=== PATIENT | female | born 1990 | race Caucasian/White ===

== ENCOUNTER 2020-08-03 19:01 | Emergency (ER) | payer MEDICAID ==
[~2020-08-03] VITALS: Ht 157.5 cm; Wt 110.0 kg
[~2020-08-03 19:01] MED LIST: ARIP10TA15 PO; CLON0.5T4 PO
[2020-08-03 19:34] LABS: URINE HCG NEGATIVE (NEG)
[2020-08-03 19:51] LABS: BASOPHILS # (AUTO) 0.1 X10'3 (0-0.2); BASOPHILS % (AUTO) 0.9 % (0-1); EOSINOPHILS # (AUTO) 0.3 X10'3 (0-0.9); EOSINOPHILS % (AUTO) 2.2 % (0-6); HEMATOCRIT 39.5 % (35.0-45.0); HEMOGLOBIN 13.4 g/dl (12.0-16.0); LYMPHOCYTES % (AUTO) 24.2 % (21-51); MEAN CORPUSCULAR HEMOGLOBIN 28.2 PG (27.0-31.0); MEAN CORPUSCULAR HGB CONC 33.9 g/dL (33.0-36.5); MEAN CORPUSCULAR VOLUME 83.3 FL (78-98); MEAN PLATELET VOLUME 8.6 FL (7.4-10.4); MONOCYTES # (AUTO) 1.1 X10'3 (0-0.9); NEUTROPHILS # (AUTO) 7.9 X10'3 (1.8-7.7); NEUTROPHILS % (AUTO) 63.7 % (42-75); PLATELET COUNT 300 X10'3 (140-440); RED BLOOD COUNT 4.74 X10'6 (4.20-5.60); RED CELL DISTRIBUTION WIDTH 13.9 % (11.5-14.5); WHITE BLOOD COUNT 12.4 X10'3 (4.5-11.0)
[2020-08-03 19:55] LABS: URINE AMPHETAMINE SCREEN NEGATIVE (Neg); URINE BARBITUATE SCREEN NEGATIVE (Neg); URINE BENZODIAZEPINES SCREEN NEGATIVE (Neg); URINE CANNABINOID SCREEN POSITIVE (Neg); URINE COCAINE SCREEN NEGATIVE (Neg); URINE METHADONE SCREEN NEGATIVE (Neg); URINE OPIATE SCREEN NEGATIVE (Neg); URINE PHENCYCLIDINE SCREEN NEGATIVE (Neg)
--- NOTE | 2020-08-03 19:56 | NUR ---
pt is yelling out and being rude to staff
[2020-08-03 20:12] LABS: ALANINE AMINOTRANSFERASE 43 U/L (12-78); ALBUMIN/GLOBULIN RATIO 1.1 (1.1-1.5); ALKALINE PHOSPHATASE 66 IU/L (46-116); ANION GAP 8 (8-16); ASPARTATE AMINO TRANSFERASE 27 U/L (10-37); BILIRUBIN,TOTAL 0.2 MG/DL (0.1-1.0); BLOOD UREA NITROGEN 17 MG/DL (7-18); CALCIUM 10.1 MG/DL (8.5-10.1); CHLORIDE 102 MMOL/L (99-107); CREATININE 0.74 MG/DL (0.40-0.90); ETHANOL < 0.010 GM/DL (0.0-0.010); GLUCOSE 104 MG/DL (70-104); POTASSIUM 3.3 MMOL/L (3.5-5.1); SODIUM 138 MMOL/L (135-145); TOTAL CARBON DIOXIDE 28.1 MMOL/L (24-32); TOTAL PROTEIN 7.8 G/DL (6.4-8.2); eGFR > 90 ML/MIN
[2020-08-03 20:13] LABS: ACETAMINOPHEN < 2.0 UG/ML (10-30)
[2020-08-03] MEDS ORDERED: LORazepam 2 mg/ml vial IM ONE (21:15)
[2020-08-03] MEDS ORDERED: diphenhydrAMINE 50 mg/ml inj IM ONE (21:15)
[2020-08-03] MEDS ORDERED: haloperidol lactate 5mg/ml inj IM ONE (21:15)
--- NOTE | 2020-08-03 21:26 | NUR ---
PATIENT IS YELLING OUT, SCREAMING ABOUT HER AND HER BOYFRIEND AND HER PAPERWORK, SECURITY ASSISTED MARIA DEL ROSARIO CHAHAL ADMINISTERING IM MEDICATIONS
--- NOTE | 2020-08-04 | NUR ---
Pt resting quietly, respirations normal, no s/s of distress.
--- NOTE | 2020-08-04 01:00 | NUR ---
Pt resting quietly, respirations normal, no s/s of distress.
--- NOTE | 2020-08-04 02:00 | NUR ---
Pt resting quietly, respirations normal, no s/s of distress.
--- NOTE | 2020-08-04 03:00 | NUR ---
Pt resting quietly, respirations normal, no s/s of distress.
--- NOTE | 2020-08-04 04:00 | NUR ---
Pt woke up yelling that she wants her paperwork, she wants to call her family, she wants to be taken home, and that she wants a turkey sandwich and some juice. Pt redirected.
--- NOTE | 2020-08-04 04:32 | NUR ---
Pt up to restroom.
[2020-08-04] MEDS ORDERED: diphenhydrAMINE 50 mg/ml inj IM ONE ×2 (04:45→06:35)
[2020-08-04] MEDS ORDERED: haloperidol lactate 5mg/ml inj IM ONE ×2 (04:45→06:35)
[2020-08-04] MEDS ORDERED: LORazepam 2 mg/ml vial IM ONE ×2 (04:45→06:35)
--- NOTE | 2020-08-04 06:34 | NUR ---
Patient was sleeping and next bed over was loud and patient is now awake. "Did I talk in my sleep last night because I usually talk in my sleep." Patient in dext bed says "No." Patient laying supine. No distress observed at this time. Continue to monitor.
[2020-08-04 07:17] LABS: CLARITY,URINE CLOUDY (Clear); COLOR,URINE AMBER (Yellow); GLUCOSE, URINE NEGATIVE (Neg); KETONES,URINE NEGATIVE (Neg); LEUKOCYTE ESTERASE ,URINE NEGATIVE (Neg); NITRITES, URINE NEGATIVE (Neg); OCCULT BLOOD,URINE LARGE (Neg); PROTEIN,URINE 30 mg/dl (Neg); UROBILINOGEN,URINE 0.2 E.U/dL (0.2-1.0)
[2020-08-04 07:22] LABS: UA COLLECTION TYPE VOIDED
[2020-08-04 07:23] LABS: BACTERIA,URINE FEW /HPF (Neg); MUCUS STRANDS NONE SEEN /LPF (Neg); RBC,URINE TNTC /HPF (0-2); SQUAMOUS EPITHELIAL CELL,UR MANY /LPF (FEW); WBC,URINE NONE SEEN /HPF (0-4)
--- NOTE | 2020-08-04 08:10 | NUR ---
Patient eating breakfast. No distress observed. Continue to monitor.
--- NOTE | 2020-08-04 09:40 | NUR ---
Patient's father at bedside. Father is very attentive to daughter. Patient agreed with RN at bedside with father to allow RN and [facility] to talk to parents on the phone or in person about patient's health history. Father states his daughter is the nicest person when she is on medication. Patient is a little agitated at times but not out of control. Continue to monitor.
[2020-08-04] MEDS ORDERED: ARIP10TA15 PO (10:16)
[2020-08-04] MEDS ORDERED: CLON0.5T5 PO (10:16)
--- NOTE | 2020-08-04 10:51 | NUR ---
Patient tells RN that she doesn't like Abilify because it makes her gain weight. RN advising patient to discuss her concerns with the doctor and so they can together come up with a plan. Patient's father stated to RN that this patient is the nicest person when she is on medication. Continue to monitor.
--- NOTE | 2020-08-04 11:26 | NUR ---
Patient's bed transferred to Bed 26. Patient is on the phone getting agitated and agitating the patient next to her. Patient questioned the move but was okay with moving. Continue to monitor.
--- NOTE | 2020-08-04 12:50 | NUR ---
Patient eating lunch. No distress observed. Continue to monitor.
--- NOTE | 2020-08-04 13:25 | NUR ---
Patient speaking to father on the phone and getting upset at him. Tech advised patient that if she continue to be upset on the phone she will need to get off. Patient calmed down and continued her conversation with her father. Continue to monitor.
--- NOTE | 2020-08-04 15:08 | NUR ---
Patient on the phone with her father and crying at times but is calm. Continue to monitor.
--- NOTE | 2020-08-04 16:20 | NUR ---
Patient writing a lot of notes. +Hypomanic. Continue to monitor.
[2020-08-04] MEDS: clonazePAM 0.5mg tablet PO PRN (17:31)
--- NOTE | 2020-08-04 17:50 | NUR ---
JAQUI, Nilda, evaluating patient. No distress observed. Continue to monitor.
[2020-08-04] MEDS: ARIPIPRAZOLE 10 MG TABLET PO SCH (20:24)
[2020-08-04] MEDS ORDERED: diphenhydrAMINE 25mg capsule PO ONE (23:05)
--- NOTE | 2020-08-05 00:33 | NUR ---
PATIENT IS YELLING AT STAFF. INFORMED PATIENT THAT IT IS GETTING LATE AND THAT WE NEED TO KEEP OUR VOICES DOWN. SECURITY WAS PRESENT FOR ANOTHER PATIENT AT THE SAME TIME. COLLECTIVELY WE WERE ABLE TO DE-ESCULATE THE SITUATIONS ON BOTH INCIDENTS.
[2020-08-05] MEDS ORDERED: nicotine 7mg patch - 24hr TD ONE (02:45)
[2020-08-05] MEDS: quetiapine 100mg tablet PO SCH (02:45)
--- NOTE | 2020-08-05 02:55 | NUR ---
PATIENT IS REFUSING SEROQUEL AT THIS TIME AND STATES SHE WILL NOT TAKE THE NICOTINE PATCH UNTIL THE MORNING . SHE WISHES TO SLEEP
--- NOTE | 2020-08-05 04:48 | NUR ---
PATIENT IS WALKING TO AND FROM BATHROOM SEVERAL TIMES. CURRENTLY STANDING IN FROM OF NURSING STATION. PATIENT CONTINUES TO ASK FOR HER CHART WELL WHY SHE IS HERE.
--- NOTE | 2020-08-05 05:02 | NUR ---
PATIENT IS REFUSING VITAL SIGNS AT THIS TIME AND STATING SHE WILL ONLY BE COOPERATIVE IF WE ALLOW HER TO TAKE A SHOWER. PATIENT IS YELLING OUT LOUD FOR ATIVAN AND NEW PANTS. ALSO REQUESTING A PHONE.
--- NOTE | 2020-08-05 05:05 | NUR ---
PATIENT IS CONTINOUSLY USING PROFANITY AND YELLING THAT SHE DOES NOT WANT TO REMAIN A PATIENT.
--- NOTE | 2020-08-05 05:14 | NUR ---
PATIENT IS BACK IN BED , YELLING PROFANITY , STATING SHE WANTS MORE MEDICATION IS REFUSING VITALS AND THAT SHE WILL NOT WEAR A GREEN SCRUB SHIRT.
--- NOTE | 2020-08-05 05:19 | NUR ---
PATIENT IS REFUSING TO WEAR A MASK WELL A SHIRT AT THIS TIME . STATES SHE IS CLOSTERPHOBIC AND IS NOT WRITING A "COMPLAINT " ABOUT HER CARE .
--- NOTE | 2020-08-05 06:43 | NUR ---
PT COMES UP TO NURSES STATION ASKING LOUDLY FOR TAMPONS AND PADS. PT GIVEN A XL TOP TO TRY ON. PT HAS REFUSED TO WEAR A SCRUB TOP BECAUSE THEY ARE TOO SMALL AND MAKE HER FEEL CLAUSTROPHOBIC.
--- NOTE | 2020-08-05 06:54 | NUR ---
PT IN THE BATHROOM CHANGING CLOTHES. PT GIVEN TAMPON AND PADS FOR HER PERIOD.
[2020-08-05] MEDS ORDERED: quetiapine 100mg tablet PO ONE (07:10)
--- NOTE | 2020-08-05 07:45 | NUR ---
PT HAS BEEN GIVEN AN XL ER GOWN AND HAS IT ON. PT ASKING FOR A SHOWER AND TOLD WE DONT HAVE SHOWERS IN THIS DEPT. PT ASKING FOR LARGER TAMPONS BUT GIVEN THE LARGEST ONE THAT WE HAVE. PT GIVEN BREAKFAST TRAY. PT REFUSES THE SEROQUEL THAT IS OFFERED TO HER. INFORM PT THAT SHE NEEDS TO STAY IN HER ROOM AND KEEP HER VOICE DOWN OR WE WILL NEED TO CALL SECURITY AND GIVE HER MEDICATION VIA INJECTION.
--- NOTE | 2020-08-05 08:06 | NUR ---
PT FINISHED WITH HER BREAKFAST. AT NURSES STATION ASKING FOR ANOTHER TAMPON.
--- NOTE | 2020-08-05 08:35 | NUR ---
While administering medication and discussing medication with patient, RN lets patient know that Seroquel has also been ordered for her. Patient states: "I have never taken that medication and I don't want it". Addendum: 08/06/20 at 0516 by SUKUMAR Time incorrect - should be 2035 on 08/05/20.
[2020-08-05] MEDS: clonazePAM 0.5mg tablet PO PRN ×2 (08:57→21:13)
--- NOTE | 2020-08-05 09:00 | NUR ---
PT REQUESTING HER CLONOPINE ONLY. PT INSISTING TO LOOK AT THE PACKAGE THE MEDICATION WAS IN. TURN LIGHT ON SO SHE CAN SEE. PT INSPECTS THE PACKAGE AND THEN TAKES THE MEDICATION. PT USING THE PHONE.
[2020-08-05] MEDS ORDERED: ibuprofen tablet 400 MG TABLET PO PRN (09:20)
--- NOTE | 2020-08-05 09:20 | NUR ---
PT ON THE PHONE CRYING TO HER FAMILY ABOUT WANTING TO COME HOME.
--- NOTE | 2020-08-05 12:00 | NUR ---
Clinician from [facility] in to eval pt. Pt will be held on a [employer]0.
--- NOTE | 2020-08-05 12:35 | NUR ---
PT DEMANDING TAMPONS AND PADS AT NURSES STATION. I DID NOT SEE PT GO INTO THE BATHROOM SO I CHECKED AND OPENED THE DOOR. PT STATES "EXCUSE ME, I DON'T EVEN KNOW YOU, DONT PEEK AT ME IN THE FUCKING BATHROOM".
--- NOTE | 2020-08-05 12:39 | NUR ---
PT IS AGGITATED AND ANGRY ABOUT EVERYTHING. PT GIVEN TAMPONS PADS AND CLEAN UNDERWEAR. PT STILL COMPLAINING ABOUT TAKING MEDICATIONS.
--- NOTE | 2020-08-05 13:34 | NUR ---
PT ASKING TO USE THE PHONE AGAIN. PT IS DENIED BECAUSE SHE GETS AGITATED WHEN TALKING TO FAMILY AND ASKING THEM TO COME AND TAKE HER HOME. PT IS UPSET AND STARTS TO YELL BUT GOES BACK TO HER ROOM. NOW ASKING FOR HER NICOTINE PATCH EVEN THOUGH SHE HAD REFUSED IT EARLIER. PT STATING "I HAVE DONE NOTHING WRONG. IM JUST TRYING TO LIVE MY LIFE. THATS ALLS"
--- NOTE | 2020-08-05 13:37 | NUR ---
PT STATES SHE WILL WALK HOME BECAUSE SHE WANTS TO TAKE A SHOWER AND SHE KNOWS HOW TO GET TO HER HOME.
[2020-08-05] MEDS ORDERED: haloperidol lactate 5mg/ml inj IM ONE (13:50)
[2020-08-05] MEDS ORDERED: LORazepam 2 mg/ml vial IM ONE (13:50)
[2020-08-05] MEDS ORDERED: diphenhydrAMINE 50 mg/ml inj IM ONE (13:50)
--- NOTE | 2020-08-05 14:35 | NUR ---
PT TOLD THAT THAT SHE CANT USE THE PHONE DUE TO HER BEHAVIOR. PT YELLING OVER THE PHONE AT HER FAMILY INSISTING THAT THEY COME AND TAKE HER HOME. PT WAS UPSET AND AGITATED, ARGUMENTIVE AND UNREASONABLE. TALKING LOUDLY AND SWEARING. PT HAS BEEN DOING THIS OFF AND ON ALL DAY. NOW GETTING WORSE. ADMIN MEDICATION ORDERED TO CALM PT DOWN.PT IS TOLD THAT SHE IS ON A HOLD AND WONT BE LEAVING SO SHE NEEDED TO STOP ASKING HER FAMILY.
--- NOTE | 2020-08-05 16:00 | NUR ---
[facility] CALLS FOR REPORT. WILL GIVE REPORT TO THEIR DOCTOR AND CALL THE [facility] OFFICE.
--- NOTE | 2020-08-05 17:00 | NUR ---
PT SLEEPING, NO S/S AGITATION.
--- NOTE | 2020-08-05 19:45 | NUR ---
Patient's mom called to check on patient. Patient sleeping and okay with mom not to wake her. Mom reports it is very important to get patient back on Abilify and that the patient will "pretend to take the pill but not really swallow it".
--- NOTE | 2020-08-05 20:30 | NUR ---
Awoke patient to administer Abilify. Patient is slow to rouse and light is turned on. Patient becomes agitated about taking Abilify and states she wants to get of the medication because it is "affecting her fertility" and that she "only came here for a test". Patient inquires as to why she is here and RN explains that she has been placed on a 5150 hold and will be going to [facility] in the morning. Patient is encouraged to take the Abilify but still refusing saying she "has an appointment already on Thursday with her psychiatrist" and does not want to go to [facility]. Patient requesting Benadryl and Ativan. RN explains that patient has Abilify ordered. Patient agrees to take Abilify and requests Klonopin; both meds administered.
[2020-08-05] MEDS: ARIPIPRAZOLE 10 MG TABLET PO SCH (21:08)
[2020-08-06] MEDS: quetiapine 100mg tablet PO SCH (02:45)
--- NOTE | 2020-08-06 05:43 | NUR ---
Enoc from [facility] called and is updated on patient situation/status. Enoc is reviewing the packet and will call back this morning. He recommends long acting Abilify injection as solution to patient not wanting to take her medication; from the chart it appears this method has been used in the past for patient.
--- NOTE | 2020-08-06 06:36 | NUR ---
Received report. Pt awake and talking about issues and wanting to not be on a hold at nurses station. Irritable with pressured speech. Redirectable.
[2020-08-06] MEDS: clonazePAM 0.5mg tablet PO PRN ×2 (09:12→20:11)
--- NOTE | 2020-08-06 09:30 | NUR ---
Pt awake and ate breakfast. She is irritated at being on a hold again and does not want to go in-pt again. Pt received Klonopin 0.5 mg @ 0912 and responded well.
--- NOTE | 2020-08-06 12:54 | NUR ---
Pt awake and talking to staff. Is labile yet redirectable. Washed her hair in sink and made phone calls.
--- NOTE | 2020-08-06 15:00 | NUR ---
Pt awaeting phone call from therapist and visit from father. Talkative. Resistive to conversations about taking MH meds.
--- NOTE | 2020-08-06 17:39 | NUR ---
Pt in bed resting and doing some writing. She had telephone meeting with therapist from [facility] and visited with her father. Pt continues to blame BF's brother for getting her "5150'd" and does not want to take the meds she has been on.
--- NOTE | 2020-08-06 18:30 | NUR ---
Assumed care of patint that is finshing dinner mean. No s/s of distress.
--- NOTE | 2020-08-06 19:53 | NUR ---
Patient up to restroom. Denies needs.
--- NOTE | 2020-08-06 20:21 | NUR ---
Patient requesting toothbrushes and floss, because she will only use them once.
[2020-08-06] MEDS: ARIPIPRAZOLE 10 MG TABLET PO SCH (21:00)
--- NOTE | 2020-08-06 21:41 | NUR ---
Patint is escalating, and making accusations that "you're not attending to my needs. I want a shower, a stack of washcloths, you're refusing me a shower". She has written down her demands, and is demanding copies be made. She has also refused Abilify stating that her "other" doctor said she did not need it.
--- NOTE | 2020-08-06 23:50 | NUR ---
Every time the patient hears anybody talking, she thinks it's about her. Now saying if anybody tries to send her to another facility there will be trouble. She says that she'll be hiring a head screen worker and suing us all.
--- NOTE | 2020-08-07 01:54 | NUR ---
Patient finally appears to be sleeping. No s/s of distress.
--- NOTE | 2020-08-07 03:23 | NUR ---
Patient asleep in supine position. Resp. even and unlabored.
[2020-08-07] MEDS: quetiapine 100mg tablet PO SCH (03:30)
--- NOTE | 2020-08-07 04:18 | NUR ---
Pt woke up extremely agitated requested water and Ativan. Pt was re-informed that Ativan was not available. Pt was updated on plan of care. Pt also observed to be paranoid that her mother or family member is forcing her to stay here and made alluding threats if she is not released today. Pt soon after went back to bed and is currently resting in bed.
--- NOTE | 2020-08-07 05:08 | NUR ---
Pt approached nursing station requesting breakfast arrival time. When nurse responded around [id number]. Pt responded, "I'm pretty sure it was 0600 yesterday." Pt then observed to be cleaning bedside table. Pt currently resting in bed.
--- NOTE | 2020-08-07 06:08 | NUR ---
VS have been assessed and patient is currently in bed sleeping with observed chest rise and fall.
--- NOTE | 2020-08-07 07:06 | NUR ---
Pt has been up to nurses station several times making demands to be released and states she would be better off at home. Pt redirected to room and requested to keep her voice down as other pts are still sleeping.
--- NOTE | 2020-08-07 07:10 | NUR ---
Pt shown where books are and is picking a book to read.
--- NOTE | 2020-08-07 07:15 | NUR ---
Pt reminded breakfast trays show up after 8am as pt at nurses station stating "it's 7:15, where's our breakfast".
--- NOTE | 2020-08-07 08:10 | NUR ---
Pt up at bedside eating breakfast tray.
[2020-08-07] MEDS: nicotine 7mg patch - 24hr TD SCH (08:31)
[2020-08-07] MEDS: clonazePAM 0.5mg tablet PO PRN ×2 (08:41→18:35)
--- NOTE | 2020-08-07 09:45 | NUR ---
Pt given phone per request to make phone calls.
--- NOTE | 2020-08-07 12:30 | NUR ---
Pt at nurses station politely articulating needs. Pt requesting if she can be started on Abilify shot and requesting to get it here. Spoke with Kristine Goodwin from [facility] and needing to verify when pt last received shot.
--- NOTE | 2020-08-07 13:15 | NUR ---
Pt states last dose of Abilify shot was 8 months ago. Will need to verify pt F/U plan as med is long acting.
--- NOTE | 2020-08-07 14:03 | NUR ---
Pt is lying on her back in bed, appears to be sleeping.
--- NOTE | 2020-08-07 15:36 | NUR ---
Parker CULVER from [facility] called to inquire about the pt.
--- NOTE | 2020-08-07 16:31 | NUR ---
Pt is talking on the phone.
--- NOTE | 2020-08-07 17:27 | NUR ---
Pt is awake and pacing back and forth in front of the nurses' station. Pt states that she finally got ahold of her boyfriend.
--- NOTE | 2020-08-07 17:42 | NUR ---
Pt is requesting an Abilify 400 mg IM injection. She is agreeable to continuing with monthly injections and restablishing services with the [facility].
[2020-08-07] MEDS: NICOTINE POLACRILEX 2 MG LOZENGE BC PRN (20:17)
[2020-08-07] MEDS: ARIPIPRAZOLE 10 MG TABLET PO SCH (20:17)
--- NOTE | 2020-08-07 20:21 | NUR ---
pt has been sitting in her bed quietly working on a [employer]. She states she hasnt had any control of her meds because her family has all of her meds so she is eager to start a PATRICK of abilify. Pt requested another nicotine patch stating her patch fell off earlier in the day. Pt was given nicotine lozenge and prn klonapin and told her next patch is scheduled for tommorow. Pt is med compliant with evening meds. Spent early evening talking with family over the phone.
--- NOTE | 2020-08-07 22:04 | NUR ---
pt is awake, in a pleasant mood. Pt is sitting on her bed drawing and occasionally approaches the nurses station to show us her drawings and returns to bed.
--- NOTE | 2020-08-08 00:57 | NUR ---
pt came to nurses station and asked about the law in [place] regarding when an unborn baby is viable and asked if we could find someone in the hospital that would have this information. Pt states she was having a nightmare when she was woken up. Explained to patient we dont have any one available at this hour to discuss [place] Law with her. Pt returned to her bed.
--- NOTE | 2020-08-08 01:16 | NUR ---
pt returned to nurses station and requested an ice pack for pain in her "neck, back, head, all over because of these uncomfortable beds!" Asked patient if she would like some medication and she declined it and was given an ice pack and proceeded to inform the tech she got the ice pack from the wrong room. A few minutes later she returned to the nurses station asking if the tech would order her a pizza and she was told no. She then returned asking if her PATRICK of cydney had been ordered for tommorow. Explained it has not been ordered as of yet. She then returned and asked for a nicotine lozenge then returned to bed
[2020-08-08] MEDS: NICOTINE POLACRILEX 2 MG LOZENGE BC PRN ×5 (02:04→19:09)
[2020-08-08] MEDS: quetiapine 100mg tablet PO SCH (02:45)
--- NOTE | 2020-08-08 04:29 | NUR ---
pt is sleeping rr even and unlabored.
--- NOTE | 2020-08-08 06:42 | NUR ---
Patient awake and demanding. Patient with light on and RN and staff asking her to be quiet as all other patients are still sleeping. Continue to monitor.
[2020-08-08] MEDS: nicotine 7mg patch - 24hr TD SCH (08:00)
--- NOTE | 2020-08-08 08:20 | NUR ---
Patient up to the nurses station multiple, multiple times for different things. Patient appears to be hypomanic. Patient to be re-evaluated today by [facility]. Continue to monitor.
[2020-08-08] MEDS: clonazePAM 0.5mg tablet PO PRN ×2 (08:24→19:09)
--- NOTE | 2020-08-08 10:11 | NUR ---
Patient constantly up at the nurses station asking for different things. Continue to monitor.
--- NOTE | 2020-08-08 12:55 | NUR ---
Patient's 5150 was renewed again. Patient was upset. Patient is supposed to have KELLY Lorenzo evaluate patient for the Invega Sustaina 400 mg long acting injection and place patient on a mood stabilizer. Continue to monitor.
--- NOTE | 2020-08-08 16:03 | NUR ---
KELLY Lorenzo (psychiatric [facility]) evaluating patient. Continue to monitor.
[2020-08-08] MEDS ORDERED: aripiprazole 400mg suspension ER syringe IM ONE (16:15)
--- NOTE | 2020-08-08 17:15 | NUR ---
Patient received Abilify Maintaina 400 mg I.M.
--- NOTE | 2020-08-08 18:40 | NUR ---
Pt stating she is allowed to go home to take a shower and she is not supposed to be here. Stated pt a few beds down is triggering her anxiety by constant growling. Md over to see another pt, received order for IM (pt refusing to take po). Pt refusing to go back to bed area. Security called and med administered.
[2020-08-08] MEDS ORDERED: haloperidol lactate 5mg/ml inj IM ONE (18:50)
--- NOTE | 2020-08-08 18:50 | NUR ---
Pt given phone to call her father.
--- NOTE | 2020-08-08 19:00 | NUR ---
Pt given PRN nicotine lozenge and klonopin for "anxiety" per pt's request.
--- NOTE | 2020-08-08 19:14 | NUR ---
Pt given phone to call her boyfriend.
--- NOTE | 2020-08-08 19:53 | NUR ---
Pt ripping pages from magazine and throwing items in garbage and on the floor around her bed. Pt turns light on despite requests to leave light off to not disturb neighbor.
--- NOTE | 2020-08-08 19:55 | NUR ---
Pt given turkey sandwich.
[2020-08-08] MEDS: ARIPIPRAZOLE 10 MG TABLET PO SCH (21:00)
--- NOTE | 2020-08-08 22:52 | NUR ---
Pt resting quietly, respirations normal, no s/s of distress.
--- NOTE | 2020-08-09 | NUR ---
Pt resting quietly, respirations normal, no s/s of distress.
--- NOTE | 2020-08-09 01:00 | NUR ---
Pt given turkey sandwich.
--- NOTE | 2020-08-09 02:00 | NUR ---
Pt resting quietly, respirations normal, no s/s of distress.
[2020-08-09] MEDS: quetiapine 100mg tablet PO SCH (02:45)
--- NOTE | 2020-08-09 03:05 | NUR ---
Pt resting quietly, respirations normal, no s/s of distress.
--- NOTE | 2020-08-09 04:43 | NUR ---
Pt resting quietly, respirations normal, no s/s of distress.
[2020-08-09] MEDS: NICOTINE POLACRILEX 2 MG LOZENGE BC PRN ×5 (06:49→23:35)
[2020-08-09] MEDS: nicotine 7mg patch - 24hr TD SCH (07:30)
[2020-08-09] MEDS: clonazePAM 0.5mg tablet PO PRN ×2 (07:50→19:08)
--- NOTE | 2020-08-09 15:45 | NUR ---
Pt requesting nicotine losenge
--- NOTE | 2020-08-09 18:30 | NUR ---
Patient approaches nurses station. She is demanding, states she wants a sandwich, not now, but later. Patient then demands to see the [facility] Clinician, "Melvin." This commercial real estate underwriter advised the patient that Melvin would be advised when he comes in to do his evening evaluations.
--- NOTE | 2020-08-09 18:50 | NUR ---
TIRSO Charles from [facility] spoke with patient at bedside. Patient became labile, she began ranting. TIRSO Charles explained the 5150 renewal to the patient. She remains angry and demanding, patient placed a phone call to her mother at home. Patient projects her problems onto her mother while talking on the telephone.
--- NOTE | 2020-08-09 19:43 | NUR ---
Patient allowed to use telephone. Patient carried on a normal conversation with her friend.
[2020-08-09] MEDS: ARIPIPRAZOLE 10 MG TABLET PO SCH (20:35)
--- NOTE | 2020-08-09 20:46 | NUR ---
Patient is compliant with medications. She remains mildly intrusive with staff. Patient is redirected and complies.
--- NOTE | 2020-08-09 22:15 | NUR ---
Patient was given a Benadryl to help her sleep.
[2020-08-09] MEDS ORDERED: diphenhydrAMINE 25mg capsule PO ONE (23:00)
--- NOTE | 2020-08-09 23:36 | NUR ---
Patient requested and was given a nicotine lozenge.
[2020-08-10] MEDS ORDERED: quetiapine 100mg tablet PO ONE ×2 (02:45→04:40)
--- NOTE | 2020-08-10 03:20 | NUR ---
Patient complains of anxiety and can't sleep. Seroquel 50 mg will be given per Dr. Alanis. Patiet behavior has been resistant to sleep.
--- NOTE | 2020-08-10 05:08 | NUR ---
Patient is up to the bathroom to void. She is ambulatory without problem.
[2020-08-10] MEDS: nicotine 7mg patch - 24hr TD SCH (08:22)
--- NOTE | 2020-08-10 08:41 | NUR ---
Patient is awake and asking for shower supplies. Patient given towels, soap, and change of clothing.
--- NOTE | 2020-08-10 09:10 | NUR ---
Patient given phone to call friend and mother.
--- NOTE | 2020-08-10 09:30 | NUR ---
rcvd report, pt is on the phone, calm, no needs at this time
--- NOTE | 2020-08-10 09:55 | NUR ---
pt req nicotine losenge, will obtain
[2020-08-10] MEDS: NICOTINE POLACRILEX 2 MG LOZENGE BC PRN ×4 (09:59→20:33)
--- NOTE | 2020-08-10 10:30 | NUR ---
pt is up at nurses station reading her poetry
[2020-08-10] MEDS: clonazePAM 0.5mg tablet PO PRN ×2 (11:13→20:34)
--- NOTE | 2020-08-10 11:31 | NUR ---
pt given klonopopin as req, now on the phone, no other needs at this time
--- NOTE | 2020-08-10 12:30 | NUR ---
pt resting in bed, no needs at this time
--- NOTE | 2020-08-10 13:30 | NUR ---
pt sitting on her bed, calm, no needs at this time
--- NOTE | 2020-08-10 14:30 | NUR ---
pt supine in bed, awake, no needs at this time
--- NOTE | 2020-08-10 16:06 | NUR ---
pt sitting up at bs eating jello no needs at this time
--- NOTE | 2020-08-10 16:30 | NUR ---
pt up at desk again, calm
--- NOTE | 2020-08-10 17:45 | NUR ---
pt is up to the bathroom, no needs at this time
--- NOTE | 2020-08-10 18:30 | NUR ---
pt talking with her dad, calm, no needs at this time
--- NOTE | 2020-08-10 19:54 | NUR ---
pt is sitting up in a chair, on the phone, she is made aware that phone is off in 5 mins
--- NOTE | 2020-08-10 20:00 | NUR ---
Pt is sitting in the bed talking over the phone.
[2020-08-10] MEDS: ARIPIPRAZOLE 10 MG TABLET PO SCH ×2 (20:35→20:38)
--- NOTE | 2020-08-10 21:30 | NUR ---
pt is walking around the unit, reading book.
--- NOTE | 2020-08-10 22:30 | NUR ---
pt resting in bed comfortably
--- NOTE | 2020-08-10 23:30 | NUR ---
pt resting in bed comfortably
--- NOTE | 2020-08-11 00:30 | NUR ---
pt resting in bed comfortably
--- NOTE | 2020-08-11 01:22 | NUR ---
pt resting in bed comfortably
--- NOTE | 2020-08-11 02:30 | NUR ---
pt resting in bed comfortably
--- NOTE | 2020-08-11 03:30 | NUR ---
pt resting in bed comfortably
--- NOTE | 2020-08-11 04:30 | NUR ---
pt is awake and sitting in her bed
[2020-08-11] MEDS: NICOTINE POLACRILEX 2 MG LOZENGE BC PRN ×4 (04:55→21:24)
--- NOTE | 2020-08-11 05:50 | NUR ---
pt is awake. vey intrusive. needs frequent redirection.
--- NOTE | 2020-08-11 06:30 | NUR ---
Patient is ampulatory, she exhibits needy behavior, she is fairly well oriented, tangential at times, mildly intrusive.
[2020-08-11] MEDS: nicotine 7mg patch - 24hr TD SCH (08:00)
--- NOTE | 2020-08-11 08:39 | NUR ---
Patient is intrusive and exhibits rude behavior. She remains needy.
--- NOTE | 2020-08-11 09:36 | NUR ---
Paulino goncalvessaritha in [facility] - 08/11/20 at 1827 by TAMY [facility] office called to remind us that this patient has been released from all mental health holds.
[2020-08-11] MEDS: clonazePAM 0.5mg tablet PO PRN ×3 (10:08→20:13)
--- NOTE | 2020-08-11 11:43 | NUR ---
Pt has been on phone for ~ 20 minutes. She was informed another pt was awaiting phone use. Pt initiated an additional call rather than give phone up as requested. Limit setting has been instituted. Pt was explained she would not be given the phone for another hour. Pt verbalized understanding of the limit, without a negative response.
--- NOTE | 2020-08-11 12:48 | NUR ---
Patient is angry at [facility] clinician.
[2020-08-11] MEDS ORDERED: LORazepam 1 MG tablet PO ONE (13:30)
--- NOTE | 2020-08-11 14:03 | NUR ---
Patient remains having verbal outbursts, she yells at staff. PO Ativan 1 mg given along with a nicotine lozenge. Patient exhibits understanding, she is quite labile today.
--- NOTE | 2020-08-11 14:43 | NUR ---
Pt's parents at bedside.
--- NOTE | 2020-08-11 15:10 | NUR ---
Pt parents here to see pt for her birthday. All belongings brought with them are held at security.
--- NOTE | 2020-08-11 17:06 | NUR ---
Parents left without incident. Pt at nursing station every few minutes asking for something.
--- NOTE | 2020-08-11 17:36 | NUR ---
Pt asks staff to look at bilateral breast "bumps".1 Small red bump noted on each lateral breast. No streaks or drainage.
[2020-08-11] MEDS: ARIPIPRAZOLE 10 MG TABLET PO SCH (20:13)
--- NOTE | 2020-08-11 22:01 | NUR ---
Pt has been cooperative and pleasant all shift. Mutiple requests for various items. Pt is hoping to go home tomorrow pt said her family is willing for her to go home. Pt is sleeping at this time.
[2020-08-12] MEDS ORDERED: diphenhydrAMINE 25mg capsule PO ONE (03:00)
--- NOTE | 2020-08-12 05:56 | NUR ---
Pt awake between 2400 and 0400. Stood at nurses station most of that time. Mutiple c/o and request. At times becoming demanding and verbally aggressive with staff. Order for Benadryl obtained and given. Pt sleeping at this time.
--- NOTE | 2020-08-12 07:00 | NUR ---
Pt up looking at the clock. 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
--- NOTE | 2020-08-12 08:00 | NUR ---
Pt up walking around waiting for breakfast. She is calm and cooperative and following directions well.
--- NOTE | 2020-08-12 08:53 | NUR ---
Pt is up coloring. She is calm and cooperative. Staff set her up for a bed bath. Mental Health will reassess her for discharge in the morning.
[2020-08-12] MEDS: clonazePAM 0.5mg tablet PO PRN ×2 (08:56→21:39)
[2020-08-12] MEDS: nicotine 14mg patch - 24hr TD SCH (08:56)
[2020-08-12] MEDS: NICOTINE POLACRILEX 2 MG LOZENGE BC PRN ×4 (09:05→19:22)
--- NOTE | 2020-08-12 09:08 | NUR ---
breaking primary, RN, pt is up at nurses station, req a nicotine losenge, it was given, no other needs at this time
--- NOTE | 2020-08-12 09:30 | NUR ---
Pt continues to entertain herself and talk about leaving here tomorrow. Pt has received her PATRICK and is compliant with taking oral pills.
--- NOTE | 2020-08-12 10:40 | NUR ---
Pt is on the phone with family. She is calm and cooperative.
--- NOTE | 2020-08-12 11:25 | NUR ---
Pt continues to cooperative. She had a bed bath.
--- NOTE | 2020-08-12 13:11 | NUR ---
Patient talking on the phone with her mom giving every detail of the lunch she just ate. Gravy, lemon packet, cake. Patient appears to still be hypomanic. Continue to monitor.
--- NOTE | 2020-08-12 14:09 | NUR ---
Patient happy and chatting on the phone. Continue to monitor.
--- NOTE | 2020-08-12 16:15 | NUR ---
Patient chatting on phone and again giving every detail of her lunch to the person on the phone. Patient still having hypomania. Patient is pleasant. Continue to monitor.
--- NOTE | 2020-08-12 19:32 | NUR ---
patient is sitting in a chair at her bedside, her physical assessment has been done and documented.
[2020-08-12] MEDS: ARIPIPRAZOLE 10 MG TABLET PO SCH (21:39)
--- NOTE | 2020-08-12 22:10 | NUR ---
patient is standing at the nurses station chatting with the nurses.
--- NOTE | 2020-08-13 00:33 | NUR ---
patient is sleeping, she is not in any distress.
--- NOTE | 2020-08-13 02:06 | NUR ---
patient is sleeping, she is breathing easily.
--- NOTE | 2020-08-13 04:06 | NUR ---
patient is sitting up in bed, drawing with some crayon.
[2020-08-13] MEDS: NICOTINE POLACRILEX 2 MG LOZENGE BC PRN ×4 (04:55→18:50)
--- NOTE | 2020-08-13 07:02 | NUR ---
Received in report that pt is on her period and she requested to shower. When shower was offered pt refused and stated "I like the sponge bath." "I will shower at my home tomorrow after lunch."
[2020-08-13] MEDS: nicotine 14mg patch - 24hr TD SCH (08:05)
--- NOTE | 2020-08-13 08:30 | NUR ---
Pt sitting on side of bed finishing her breakfast. Pt's only scheduled medication was her 14mg Nicotine patch. Pt is talkative and makes grandiose statements. Talked about "all the sports she used to play" and how she was good at all of them. Pt denies S/I and H/I, A/VH. Pt has a box of "art" and wanted to show director underwriter sales all she had done. Pt believes she is going home today "I am doing everything I am supposed too." "I am taking my meds, eating and even washing myself." "There is no reason I wouldn't be able to leave, I am not under [facility] care." Pt is calm and cooperative.
[2020-08-13] MEDS: clonazePAM 0.5mg tablet PO PRN ×2 (08:48→22:04)
--- NOTE | 2020-08-13 10:44 | NUR ---
Pt at nurses station using counter space to draw. Pt is talkative and needs to be asked to take a break while RN charts. Pt continues to talk, remains calm and cooperative. Pt had several phones calls talking to her father and her sister.
--- NOTE | 2020-08-13 11:48 | NUR ---
patient ambulated wnl up to nurses station and requested a nicotine lozenge. primary rn to give
--- NOTE | 2020-08-13 12:58 | NUR ---
Pt up in her bed talking on phone. Pt is calm. Ate 100% of her lunch.
--- NOTE | 2020-08-13 14:38 | NUR ---
Pt up a nurses desk drawing. Pt consistently talks wether it is to staff or herself. Pt states "I just want to go home." "I am bored."
--- NOTE | 2020-08-13 16:18 | NUR ---
Administered Nicotine lozenge.
--- NOTE | 2020-08-13 16:33 | NUR ---
Pt sitting on bed talking on phone. 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
[2020-08-13 16:59] VITALS: BP 139/90
--- NOTE | 2020-08-13 19:58 | NUR ---
Received patient in her room drawing pictures. Denies needs.
--- NOTE | 2020-08-13 20:45 | NUR ---
The patient comes to nurses station. She demanded 5 towels, 5 washcloths, new socks, new panties, and a feminine pad. She was given 3 towels and 3 washcloths along with other things.
[2020-08-13] MEDS: ARIPIPRAZOLE 10 MG TABLET PO SCH (21:00)
--- NOTE | 2020-08-13 21:05 | NUR ---
Pt in bathroom taking sponge bath.
--- NOTE | 2020-08-13 23:00 | NUR ---
Patient soundly sleeping. Resp equal and unlabored.
--- NOTE | 2020-08-14 01:15 | NUR ---
Patient asleep in supine position. No s/s of distress.
--- NOTE | 2020-08-14 03:31 | NUR ---
patient lying on left side in bed covers on eyes closed rr even un labored no observables/s of acute stress at this time will continue to monitor while breaking primary RN
--- NOTE | 2020-08-14 03:53 | NUR ---
Patient lying in bed with eyes closed. Occasionally yells about something.
--- NOTE | 2020-08-14 04:46 | NUR ---
Patient awake asking for water and being intrusive at nurses station.
--- NOTE | 2020-08-14 04:55 | NUR ---
Patient back to nurses station, "since I don't know when I'm getting out of here, and I'm too dumb to do anything about it, I demand some sort of B-complex added to my meals."
--- NOTE | 2020-08-14 05:10 | NUR ---
Patient again at nurses station making demands and will not go back to her room. "I get up at this time at home all the time, so you people are supposed to accomodate me."
--- NOTE | 2020-08-14 06:00 | NUR ---
Patient pacing around aimlessly. Will not stay in room.
--- NOTE | 2020-08-14 06:40 | NUR ---
Patient is up and agitated. Patient being loud and attempting to awaken the other patients. Patient states she is going to report the RN for taking away her basin that she whe was filling in the outside sink. The sink is high power and making loud noise. RN asked patient to please be quiet and wait until people are awake before she talks loudly and makes noise. This set patient off. Continue to monitor.
--- NOTE | 2020-08-14 08:35 | NUR ---
Patient eating breakfast. No distress observed. Continue to monitor.
[2020-08-14] MEDS: nicotine 14mg patch - 24hr TD SCH (08:52)
[2020-08-14] MEDS: clonazePAM 0.5mg tablet PO PRN (09:25)
--- NOTE | 2020-08-14 09:32 | NUR ---
PATIENT UP AND ATTEMPTING TO EXCERSIZE WHILE LIFTING HER SHIRT UP. PATIENT WAS ASKED TO GO TO HER ROOM. SHE REFUSED IN A RAISED VOICE AND THEN WENT TO HER ROOM. PATIENT THEN ASKED TO USE THE PHONE. WHEN ASKED WHO SHE WAS GOING TO CALL, SHE SAID THAT SHE WOULD BE CALLING [facility] TO SEE IF THEY WOULD TAKE HER. I EXPLAINED TO HER THAT WE CAN NOT ALLOW HER TO CALL FACILITIES AND THAT CALLING FACILITIES FOR PLACEMENT IS OUR JOB NOT HERS. SHE AGREED
--- NOTE | 2020-08-14 10:00 | NUR ---
Patient bathing in the BR. No distress observed.
[2020-08-14] MEDS: NICOTINE POLACRILEX 2 MG LOZENGE BC PRN (10:42)
--- NOTE | 2020-08-14 11:08 | NUR ---
[facility], evaluating patient. Continue to monitor.
--- NOTE | 2020-08-14 12:30 | NUR ---
[facility] Patient is going to the mission. Continue to monitor.
--- NOTE | 2020-08-14 14:38 | NUR ---
RN called a cab for patient. 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 Patient given d/c instrucions. Patient awaiting Taxi. Patient calm and denies suicidal ideation.
== END 2020-08-14 14:57 | disposition home or self-care (01) ==
LOC: EEVIPCON 19:01 → ER 19:01
DX: F23 Brief psychotic disorder (principal); Z20.822 Contact with and (suspected) exposure to COVID-19; R11.0 Nausea; F31.9 Bipolar disorder, unspecified; F20.9 Schizophrenia, unspecified; F12.90 Cannabis use, unspecified, uncomplicated; Z88.8 Allergy status to other drugs, medicaments and biological substances; Z79.899 Other long term (current) drug therapy
CPT/HCPCS: 36415; 80053; 80305; 80320; 80329; 81001; 81025; 85025; 87426; 96372; 99285; J1200; J1630; J2060; Q0163

== ENCOUNTER 2020-08-23 15:34 | Emergency (ER) | payer MEDICAID ==
[~2020-08-23] VITALS: Ht 162.6 cm; Wt 125.0 kg
[~2020-08-23 15:34] MED LIST changes: -CLON0.5T4 PO; +CLON0.5T5 PO
[2020-08-23] MEDS ORDERED: LORazepam 2 mg/ml vial IM ONE ×2 (16:20→18:40)
[2020-08-23] MEDS ORDERED: diphenhydrAMINE 50 mg/ml inj IM ONE (16:20)
--- NOTE | 2020-08-23 16:32 | NUR ---
PT GIVEN ATIVAN AND BENADRYL IM. PT NOT OBEYING COMMANDS, VERY VERBAL, AGGRESSIVE, THREATENING. SECURITY AT STANDBY.
[2020-08-23 16:41] LABS: CLARITY,URINE SLIGHTLY CLOUDY (Clear); COLOR,URINE STRAW (Yellow); GLUCOSE, URINE NEGATIVE (Neg); KETONES,URINE NEGATIVE (Neg); LEUKOCYTE ESTERASE ,URINE MODERATE (Neg); NITRITES, URINE NEGATIVE (Neg); OCCULT BLOOD,URINE SMALL (Neg); PROTEIN,URINE NEGATIVE (Neg); UROBILINOGEN,URINE 0.2 E.U/dL (0.2-1.0)
[2020-08-23 16:43] LABS: URINE HCG NEGATIVE (NEG)
[2020-08-23 16:45] LABS: URINE AMPHETAMINE SCREEN NEGATIVE (Neg); URINE BARBITUATE SCREEN NEGATIVE (Neg); URINE BENZODIAZEPINES SCREEN NEGATIVE (Neg); URINE CANNABINOID SCREEN POSITIVE (Neg); URINE COCAINE SCREEN NEGATIVE (Neg); URINE METHADONE SCREEN NEGATIVE (Neg); URINE OPIATE SCREEN NEGATIVE (Neg); URINE PHENCYCLIDINE SCREEN NEGATIVE (Neg)
[2020-08-23 16:46] LABS: UA COLLECTION TYPE CLN CATCH MIDSTREAM
[2020-08-23 16:52] LABS: SQUAMOUS EPITHELIAL CELL,UR MANY /LPF (FEW)
[2020-08-23 16:54] LABS: BACTERIA,URINE FEW /HPF (Neg); RBC,URINE 0-2 /HPF (0-2); TRANSITIONAL EPI CELLS,URINE MODERATE /HPF; WBC,URINE 0-4 /HPF (0-4)
[2020-08-23 16:56] LABS: MUCUS STRANDS NONE SEEN /LPF (Neg)
[2020-08-23 17:12] LABS: BASOPHILS # (AUTO) 0.1 X10'3 (0-0.2); BASOPHILS % (AUTO) 0.7 % (0-1); EOSINOPHILS # (AUTO) 0.1 X10'3 (0-0.9); EOSINOPHILS % (AUTO) 0.4 % (0-6); HEMATOCRIT 39.7 % (35.0-45.0); HEMOGLOBIN 12.8 g/dl (12.0-16.0); LYMPHOCYTES # (AUTO) 1.9 X10'3 (1.1-4.8); LYMPHOCYTES % (AUTO) 13.5 % (21-51); MEAN CORPUSCULAR HEMOGLOBIN 27.3 PG (27.0-31.0); MEAN CORPUSCULAR HGB CONC 32.3 g/dL (33.0-36.5); MEAN CORPUSCULAR VOLUME 84.5 FL (78-98); MONOCYTES % (AUTO) 6.9 % (2-12); NEUTROPHILS # (AUTO) 11.2 X10'3 (1.8-7.7); NEUTROPHILS % (AUTO) 78.5 % (42-75); PLATELET COUNT 432 X10'3 (140-440); RED CELL DISTRIBUTION WIDTH 13.5 % (11.5-14.5); WHITE BLOOD COUNT 14.3 X10'3 (4.5-11.0)
[2020-08-23 17:44] LABS: ALANINE AMINOTRANSFERASE 44 U/L (12-78); ALBUMIN 4.2 G/DL (3.4-5.0); ALKALINE PHOSPHATASE 73 IU/L (46-116); ANION GAP 12 (8-16); ASPARTATE AMINO TRANSFERASE 33 U/L (10-37); BILIRUBIN,TOTAL 0.3 MG/DL (0.1-1.0); BLOOD UREA NITROGEN 10 MG/DL (7-18); BUN/CREATININE RATIO 13.9 (6.6-38.0); CALCIUM 9.7 MG/DL (8.5-10.1); CHLORIDE 103 MMOL/L (99-107); CREATININE 0.72 MG/DL (0.40-0.90); ETHANOL < 0.010 GM/DL (0.0-0.010); GLUCOSE 101 MG/DL (70-104); POTASSIUM 3.7 MMOL/L (3.5-5.1); SODIUM 139 MMOL/L (135-145); TOTAL CARBON DIOXIDE 24.5 MMOL/L (24-32); TOTAL PROTEIN 8.5 G/DL (6.4-8.2); eGFR > 90 ML/MIN
--- NOTE | 2020-08-23 17:45 | NUR ---
Pt had to be assisted to undress and be changed into green scrubs. Pt shoes and socks removed which were wet from her peeing onto the floor giving a urine specimen. Pt is now sitting quietly at bedside. Appears to be getting drowsy.
--- NOTE | 2020-08-23 17:48 | NUR ---
Pt refused vital signs.
--- NOTE | 2020-08-23 18:04 | NUR ---
Packet sent to [facility]
[2020-08-23] MEDS ORDERED: haloperidol lactate 5mg/ml inj ONE (18:39)
[2020-08-23] MEDS ORDERED: LORazepam 2 mg/ml vial ONE (18:39)
[2020-08-23] MEDS ORDERED: haloperidol lactate 5mg/ml inj IM ONE (18:40)
--- NOTE | 2020-08-23 18:51 | NUR ---
The patient became very agitated and screaming about being and about the ER killing her baby. She was screaming that she was going to leave "I have a date tonight" She jumped on her bed and was standing on it and threatening staff. She was given IM medications Haldol 10mg and ativan 2mg IM and she was placed in 4 point restraints.
--- NOTE | 2020-08-23 19:30 | NUR ---
The patient appears to be sleeping and restraints were removed.
--- NOTE | 2020-08-23 21:16 | NUR ---
The patient continues to sleep with no s/s of distress respirations regular rate and rhythm
--- NOTE | 2020-08-23 21:33 | NUR ---
Spoke with [facility] charge histotechnologist, [place] and requested a medication consult for tomorrow
--- NOTE | 2020-08-24 00:07 | NUR ---
The patient continues to sleep with no s/s of distress noted.
--- NOTE | 2020-08-24 01:30 | NUR ---
The patient appears to be sleeping without s/s of distress. She is laying on her back
[2020-08-24] MEDS ORDERED: LORazepam 2 mg/ml vial IM ONE ×2 (02:50→21:55)
[2020-08-24] MEDS ORDERED: haloperidol lactate 5mg/ml inj IM ONE ×2 (02:50→21:55)
--- NOTE | 2020-08-24 02:58 | NUR ---
The patient awake and screaming and very agitated. Security at the bedside. She began striking out at staff.
--- NOTE | 2020-08-24 03:58 | NUR ---
The patient appears to be sleeping
--- NOTE | 2020-08-24 05:25 | NUR ---
The patient appears to be sleeping
--- NOTE | 2020-08-24 06:41 | NUR ---
PT RESTING IN BED ON BACK RR REGULAR AND UNLABORED. PT EYES CLOSED WITH SNORING RESP. IN SITE OF NSG STATION
--- NOTE | 2020-08-24 08:06 | NUR ---
PT CONTINUES RESTING WITH EYES CLOSED RR EQUAL AND UNLABORED
--- NOTE | 2020-08-24 08:48 | NUR ---
PT RESTING ON BACK RR EQUAL AND UNLABORED EYES CLOSED
--- NOTE | 2020-08-24 09:12 | NUR ---
PTS MOM CALLED STATING SHE WANTS PT TESTED FOR "EVERYTHING POSSIBLE" MOM STATES PT WAS FOUND IN A HOTEL WITH HOMELESS PEOPLE AND THERE WERE NEEDLES. MOM STATES SHE WANTS PT CHECKED FOR NEEDLE BARAJAS. MOM STATES SHE WANTS PT CHECKED FOR HEPATITIS AND OTHER THINGS. INFORMED MOM AT THIS TIME PT IS ASLEEP AND SHE IS NOT ABLE TO GIVE AN ACOUNT OF WHERE SHE WAS OR CONSENT TO ANY TESTING. INFORMED MOM THIS IS SOMTHING THE MD WOULD HAVE TO ORDER ONLY IF PT MAKES STATMENTS OR CONSENTS TO TESTING PT IS AN ADULT. MOTHER ASKED TO SPEAK TO MD AGAING INFORMED MOTHER PT IS ASLEEP AND CAN NOT GIVE CONSENT FOR MOTHER TO SPEAK WITH ANYONE AT THIS TIME. INFOMED MOTHER ONCE PT WAKES WILL NOTIFY HER OF MOTHER CALL AND INQUIRE IF SHE GIVES VERBAL CONSENT FOR STAFF TO SPEAK WITH MOTER. WILL PASS ON TO [facility] THAT MOTHER IS WISHING TO SPEAK TO THEM
--- NOTE | 2020-08-24 10:31 | NUR ---
PT RESTING ON BACK WITH EYES CLOSED RR EQUAL AND SNORING RESP. PT REPOSITIONS SELF NEEDED
[2020-08-24] MEDS: clonazePAM 0.5mg tablet PO PRN ×2 (10:49→19:05)
--- NOTE | 2020-08-24 10:55 | NUR ---
PT AWAKE UP TO BR. PT REQUESTING TO GET CLEANED UP. PT GIVEN PERSONAL CARE ITEMS AND IS IN THE BATHROOM WASHING UP. PT IS CALM AND ACTING APROP AT THIS TIME.
--- NOTE | 2020-08-24 11:19 | NUR ---
PT IN BATHROOM PROVIDING FOR HER PERSONAL HYGIENE. PT REQUESTING SHAMPOO, LOTION AND OTHER ITEMS NOT CURRENTLY ACCESSIBLE. PCT [facility] WILL PROVIDE ONCE AVAILABLE. PT INFORMED.
--- NOTE | 2020-08-24 12:55 | NUR ---
ALEXYH AT FOR EVAL.
--- NOTE | 2020-08-24 13:05 | NUR ---
[facility] at bedside, pt. informed by [facility] that she would be kept on a hold, pt. began yelling at [facility] and [facility] left bedside. Pt. instructed by RN and Candace to keep her voice down. Security paged for standby. Pt. currently talking in raised voice while sitting in bed eating meal tray.
[2020-08-24] MEDS ORDERED: OLANZapine **IM** 10 mg inj. IM ONE (13:20)
--- NOTE | 2020-08-24 15:13 | NUR ---
PT RESTING ON BACK RR EQUAL AND UNLABORED. NO NEEDS AT THIS TIME
--- NOTE | 2020-08-24 16:42 | NUR ---
PHONE TAKEN AWAY FROM PT SHE IS BECOMING AGGITATED TALKING TO FAMILY. PT AGREES AND SHE WILL ATTEMPTED TO REST UNTIL DINNER
--- NOTE | 2020-08-24 19:42 | NUR ---
pt is manic, attempting to talk to other patients. Pt is so far cooperative and redirectable. pt became tearful and requested a klonoping for anxiety.
[2020-08-24] MEDS: ARIPIPRAZOLE 10 MG TABLET PO SCH (20:49)
[2020-08-24] MEDS: NICOTINE POLACRILEX 2 MG LOZENGE BC PRN (20:49)
[2020-08-24] MEDS ORDERED: diphenhydrAMINE 50 mg/ml inj IM ONE (21:55)
--- NOTE | 2020-08-24 22:22 | NUR ---
pt became agitated, threw a bucket of water after being told she can't take a shower in the bathroom. Pt became verbally abusive, swearing. Pt accepted benadryl 50 mg, ativan 2 mg, haldol 10 mg, all IM.
--- NOTE | 2020-08-25 00:08 | NUR ---
pt is sleeping, no s/s of distress noted.
--- NOTE | 2020-08-25 01:45 | NUR ---
pt is sleeping, pt will occasionally wake up and say something nonsensical. no needs at this time.
[2020-08-25] MEDS ORDERED: diphenhydrAMINE 50 mg/ml inj IM ONE (02:15)
[2020-08-25] MEDS ORDERED: haloperidol lactate 5mg/ml inj IM ONE (02:15)
[2020-08-25] MEDS ORDERED: LORazepam 2 mg/ml vial IM ONE (02:15)
--- NOTE | 2020-08-25 02:23 | NUR ---
Note jw in ED - 08/25/20 at 0227 by EUGENIO pt approached nurses station demanding a snack, when told we were out of sandwiches, pt became verbally abusive, swearing at staff, making demands. Pt threatened to "slap the shit out of" this nurse and stated that she "everyone here," and demanded to know the name of the tech.
--- NOTE | 2020-08-25 02:27 | NUR ---
pt approached nurses station demanding a snack, when told we were out of sandwiches, pt became verbally abusive, swearing at staff, making demands. Pt threatened to "slap the shit out of" this nurse and stated that she will jinny "everyone here," and demanded to know the name of the tech.
--- NOTE | 2020-08-25 04:20 | NUR ---
pt continues to sleep, rr unlabored, no s/s of distress noted.
--- NOTE | 2020-08-25 06:41 | NUR ---
Patient sleeping supine in bed. Respirations are even and nonlabored. Will continue to monitor.
--- NOTE | 2020-08-25 09:39 | NUR ---
Patient awakens and up to the bathroom. Now eating breakfast. Patient is disorganized and tangential.
[2020-08-25] MEDS: clonazePAM 0.5mg tablet PO PRN ×2 (10:05→21:01)
--- NOTE | 2020-08-25 10:10 | NUR ---
Patient is starting to escalate, Klonopin 0.5 mg given with minimal benefit. Attempting to de-escalate patient, set boundaries.
[2020-08-25] MEDS ORDERED: ibuprofen tablet 400 MG TABLET PO ONE (10:45)
--- NOTE | 2020-08-25 11:34 | NUR ---
Patient talking on phone to her cousin. Tearful at times. Talking about people stabbing her, and other unhealthy harmful conversations. Patient is demanding two basins for "sponge baths". Will continue to monitor.
[2020-08-25] MEDS ORDERED: OLANZapine 2.5MG tablet PO ONE (13:05)
[2020-08-25] MEDS: NICOTINE POLACRILEX 2 MG LOZENGE BC PRN ×2 (13:11→18:53)
--- NOTE | 2020-08-25 13:55 | NUR ---
Patient was given Zyprexa 10 mg p.o. Patient is now sleeping in bed snoring. No distress noted. Respirations are even and nonlabored.
--- NOTE | 2020-08-25 15:39 | NUR ---
Patient sleeping in supine position. Respirations are even and nonlabored.
[2020-08-25 17:09] VITALS: BP 133/79
--- NOTE | 2020-08-25 17:31 | NUR ---
[facility] REQUESTING PTS LATEST VITAL SIGNS FOR POSSIBLE PLACEMENT AT A PUFF IN [facility]. INFORMATION FAXED, RN AWARE.
--- NOTE | 2020-08-25 18:21 | NUR ---
Report to [facility], [place]
[2020-08-25] MEDS ORDERED: haloperidol 5mg tablet PO ONE (18:50)
[2020-08-25] MEDS ORDERED: LORazepam 1 MG tablet PO ONE (18:50)
[2020-08-25] MEDS ORDERED: nicotine 7mg patch - 24hr TD ONE (19:00)
--- NOTE | 2020-08-25 19:23 | NUR ---
The patient has been very labile and easily agitated then tearful then friendly. Discussed medications with the patient and she is open to take some medications but does not want to take others. Attempted to work with the patient regarding medications.
--- NOTE | 2020-08-25 19:41 | NUR ---
The patient is on the phone talking with a friend and is being appropriate at this time.
--- NOTE | 2020-08-25 20:15 | NUR ---
The patient is up at the station working on art work. She is interacting appropriately
--- NOTE | 2020-08-25 20:31 | NUR ---
The patient has been accepted at [facility] unit at 1810 this date. The accepting MD is Dr. Washburn and she will be picked up at around 2130 tonight.
[2020-08-25] MEDS: ARIPIPRAZOLE 10 MG TABLET PO SCH (21:01)
--- NOTE | 2020-08-25 21:53 | NUR ---
Discussed with the patient the plan to be transferred to [facility]
== END 2020-08-25 22:11 ==
LOC: ER 15:35
DX: F23 Brief psychotic disorder (principal); Z20.822 Contact with and (suspected) exposure to COVID-19; F31.9 Bipolar disorder, unspecified; F12.90 Cannabis use, unspecified, uncomplicated; Z88.8 Allergy status to other drugs, medicaments and biological substances; Z79.899 Other long term (current) drug therapy
CPT/HCPCS: 36415; 80053; 80305; 80320; 81001; 81025; 85025; 87426; 96372; 99285; J1200; J1630; J2060; J3490